=== PATIENT | male | born 1995 | race Caucasian/White ===

== ENCOUNTER 2016-10-31 18:36 | Emergency (ER) | payer OTHER ==
[2016-10-31 18:51] VITALS: BP 100/64; PULSE 74; TEMP 98.6; BMI 18.0
[2016-10-31] MEDS ORDERED: CEPHALEXIN MONOHYDRATE 500 MG CAPSULE (UD) PO ONE (19:25)
[2016-10-31] MEDS ORDERED: DIPHTH,PERTUSS(ACELL),TET 0.5 ML DISP.SYRIN IM ONE (19:25)
[2016-10-31] MEDS ORDERED: OXYCODONE/APAP 5/325MG COMBO TABLET PO ONE (19:26)
--- NOTE | 2016-10-31 19:29 | PDOC ---
History of Present Illness - General Chief Complaint: Injury Stated Complaint: LACERATION Time Seen by Provider: 10/31/16 18:47 History Source: Patient Exam Limitations: No Limitations - History of Present Illness Initial Comments: 10/31/16 19:25 21 yr male with laceration crush injury to right second digit on [place] the [place]. 11/01/16 19:35 Past History - Past Medical History Allergies/Adverse Reactions: Allergies Allergy/AdvReac Type Severity Reaction Status Date / Time No Known Allergies Allergy Verified 10/31/16 18:42 Home Medications: Ambulatory Orders Cephalexin Monohydrate [Keflex -] 250 mg PO Q8H #21 capsule 10/31/16 Oxycodone HCl/Acetaminophen [Percocet 5-325 mg Tablet] 1 tab PO Q6H PRN #8 tablet MDD 4 tabs 10/31/16 Psychiatric Problems: Yes (PTSD,SCHIZOPHRENIA) - Psycho/Social/Smoking Cessation Hx Anxiety: No Suicidal Ideation: No Smoking History: Current some day smoker Have you smoked in the past 12 months: No Information on smoking cessation initiated: No Drug/Substance Use Hx: Yes (marijuana) Substance Use Type: None *Physical Exam - Vital Signs Last Vital Signs Temp Pulse Resp BP Pulse Ox 98.6 F 74 19 100/64 97 10/31/16 18:40 10/31/16 18:40 10/31/16 18:40 10/31/16 18:40 10/31/16 18:40 - Physical Exam General Appearance: Yes: Nourished, Appropriately Dressed HEENT: positive: EOMI, ROHIT Extremity: positive: Normal Inspection, Normal Range of Motion, Other (right second digit tip with macerated 1.5cm laceration nail intact, lac to distal tip volar side, nv intact ) Integumentary: positive: Normal Color, Dry, Warm Neurologic: positive: Fully Oriented, Alert, Normal Mood/Affect, Normal Response , Motor Strength 5/5 Procedures - Laceration/Wound Repair Left Distal 2nd digit Finger Wound Length: to 2.5 cm Wound Explored: contaminated Wound's Depth, Shape: irregular, flap Irrigated w/ Saline: Yes Betadine Prep: Yes Anesthesia: 1% Lidocaine Amount of Anesthetic (ccs): 3 Wound Repaired With: Sutures Suture Size/Type: 5:0, nylon Number of Sutures: 3 Layer Closure: No Sterile Dressing Applied: Yes Splint Applied: Yes Progress: 10/31/16 19:29 nv intact nail is intact ED Treatment Course - RADIOLOGY Radiology Studies Ordered: Category Date Time Status HAND- RIGHT [RAD] Stat Radiology 10/31/16 18:46 Ordered Medical Decision Making - Medical Decision Making 10/31/16 19:27 cc: finger tip laceration crush injury will update tetanus xray to r/o fracture r/o fb will irrigate and suture close and wound check in 2 days 10/31/16 19:53 preliminary reading by me is negative for fracture negative for fb pt to return in 2 days for wound check pt understands the importance of STRICT follow up as the wound is very dirty and can easily become infected 11/01/16 19:36 *DC/Admit/Observation/Transfer Diagnosis at time of Disposition: Fingernail injury Qualifiers: Encounter type: initial encounter Laterality: right Qualified Code(s): S69.91XA - Unspecified injury of right wrist, hand and finger(s), initial encounter - Discharge Dispostion Disposition: HOME Condition at time of disposition: Good - Prescriptions Prescriptions: Cephalexin Monohydrate [Keflex -] 250 mg PO Q8H #21 capsule Oxycodone HCl/Acetaminophen [Percocet 5-325 mg Tablet] 1 tab PO Q6H PRN #8 tablet MDD 4 tabs PRN Reason: Severe Pain - Referrals Referrals: Isabelle Galeano MD [Primary Care Provider] - - Patient Instructions Additional Instructions: Return in 48hrs for a wound check after 11am keep dry do not get wet take the antibiotics as prescribed take percocet for severe pain keep the splint in place follow with plastic surgeon Dr. Salgado for follow up this week call tomorrow to make appointment
[2016-10-31] MEDS ORDERED: CEPHALEXIN MONOHYDRATE 500 MG CAPSULE (UD) ONE (19:33)
[2016-10-31] MEDS ORDERED: OXYCODONE/APAP 5/325MG COMBO TABLET ONE (19:34)
== END 2016-10-31 20:02 | disposition home or self-care (01) ==
LOC: JERFT 18:36
PROC: 0JQJ0ZZ Repair Right Hand Subcutaneous Tissue and Fascia, Open Approach (ICD-10-PCS; principal; 2016-10-31)
PROC: 3E0234Z Introduction of Serum, Toxoid and Vaccine into Muscle, Percutaneous Approach (ICD-10-PCS; 2016-10-31)
PROC: 2W3KX1Z Immobilization of Left Finger using Splint (ICD-10-PCS; 2016-10-31)
DX: S67.190A Crushing injury of right index finger, initial encounter (principal); S61.210A Laceration without foreign body of right index finger without damage to nail, initial encounter; W23.0XXA Caught, crushed, jammed, or pinched between moving objects, initial encounter; Y93.89 Activity, other specified; Y92.828 Other wilderness area as the place of occurrence of the external cause; Y99.8 Other external cause status
CPT/HCPCS: 12001-25; 29130; 73130-TC-RT; 90471; 90715; 99281-25

== ENCOUNTER 2016-11-02 17:44 | Emergency (ER) | payer OTHER ==
[2016-11-02 18:06] VITALS: BP 120/51; PULSE 79; TEMP 98; BMI 18.0
--- NOTE | 2016-11-02 19:55 | PDOC ---
Suture Removal/Wound Check HPI - History of Present Illness Chief Complaint: Revisit,Wound Recheck Stated Complaint: REVISIT Time Seen by Provider: 11/02/16 18:11 History Source: Yes: Patient Exam Limitations: Yes: No Limitations [facility] Date of Last ED visit: 10/31/16 - Previous ED Treatment Type of procedure performed on last visit: Yes: Laceration Repair Tetanus Immunization: Yes: Given at last ED visit - Onset of Previous Treatment Date of Occurence: 10/31/16 Past History - Past Medical History Allergies/Adverse Reactions: Allergies No Known Allergies Allergy (Verified 11/02/16 18:02) Home Medications: Ambulatory Orders Cephalexin Monohydrate [Keflex -] 250 mg PO Q8H #21 capsule 10/31/16 Oxycodone HCl/Acetaminophen [Percocet 5-325 mg Tablet] 1 tab PO Q6H PRN #8 tablet MDD 4 tabs 10/31/16 General: Yes: no pertinent history - Social History Smoking Status: Never smoked Suture Removal/Wound Check PE - Physical Exam Laceration/Wound Check Symptoms: reports: Pain Comments: 11/02/16 19:49 21 yr male here for wound check laceration/crush injury to left right index finger 2 days ago. pt taking keflex and percocet for pain. Current Severity Level: Moderate Maximum Severity Level: Severe *Review of Systems - Review of Systems Able to Perform ROS?: Yes Constitutional: No: Symptoms Reported HEENTM: No: Symptoms Reported Respiratory: No: Symptoms reported Cardiac (ROS): No: Symptoms Reported ABD/GI: No: Symptoms Reported : No: Symptoms Reported Musculoskeletal: No: Symptoms Reported Integumentary: Yes: Symptoms Reported Procedures - Additional Procedures Progress: 11/02/16 19:50 wound is clean and dry wound redressed nv intact pt has FROM , Medical Decision Making - Medical Decision Making 11/02/16 19:51 cc:: fingernail injury wound check redressed healing well follow up at [facility] [place] [address] *DC/Admit/Observation/Transfer Diagnosis at time of Disposition: Fingernail injury Qualifiers: Encounter type: subsequent encounter Laterality: right Qualified Code(s): S69.91XD - Unspecified injury of right wrist, hand and finger(s), subsequent encounter - Discharge Dispostion Disposition: HOME Condition at time of disposition: Good - Referrals Referrals: Isabelle Galeano MD [Primary Care Provider] - - Patient Instructions Additional Instructions: keep dry remove the dressing in 24hours and let dry open to air then recover with bandaids call tomorrow to make a follow up appointment with the hand/plastic clinic at [facility] tell them you have a fingertip injury and you were seen at [facility] [place], [place] [address] If you have any concerns or are unable to see the plastic surgeon or any signs of infection return to ER
== END 2016-11-02 20:51 | disposition home or self-care (01) ==
LOC: JERFT 17:44
DX: Z09 Encounter for follow-up examination after completed treatment for conditions other than malignant neoplasm (principal)
CPT/HCPCS: 99281-25